=== PATIENT | female | born 1980 | race Caucasian/White ===

== ENCOUNTER 2017-10-26 11:06 | Inpatient (IN) | payer BC ==
[~2017-10-26] VITALS: Ht 172.7 cm; Wt 90.5 kg
[~2017-10-26 11:06] MED LIST: INSU100V13 SQ; LANTUS SQ; PARO-62 PO
[2017-10-26] MEDS ORDERED: INSU100C4 SQ (13:51)
[2017-10-26 15:41] VITALS: BP 110/77
[2017-10-26] MEDS ORDERED: glucagon, human recombinant 1mg kit SUBCUT PRN (15:50)
[2017-10-26] MEDS ORDERED: MESSAGE TO PHARMACY PO ONE (15:50)
[2017-10-26] MEDS ORDERED: dextrose 50%-water 50ml dispensing syringe IV PRN ×2 (15:50)
[2017-10-26] MEDS ORDERED: dextrose ORAL solution 15 GM/59 ML bottle PO PRN ×2 (15:50)
[2017-10-26 16:06] LABS: HEMOGLOBIN A1C 8.2 % (4.5-6.2)
[2017-10-26 16:09] LABS: CHOL/HDL RATIO 4.4 (0.00-4.99); CHOLESTEROL 174 MG/DL (0-200); HDL CHOLESTEROL 40 MG/DL (35-60); LDL CHOLESTEROL 111 MG/DL (50-100); TRIGLYCERIDES 120 MG/DL (20-135)
[2017-10-26] MEDS: insulin Lispro (HumaLOG) vial - multi-dose SQ SCH (18:28)
[2017-10-26 19:00] VITALS: BP 119/80
[2017-10-26] MEDS: insulin glargine (Lantus) pen - multi-dose SQ SCH (21:31)
[2017-10-27 07:49] VITALS: BP 104/74
[2017-10-27] MEDS ORDERED: PARoxetine 20mg tablet PO SCH ×2 (08:00)
[2017-10-27] MEDS: insulin Lispro (HumaLOG) vial - multi-dose SQ SCH ×3 (08:30→18:03)
[2017-10-27 20:00] VITALS: BP 128/75
[2017-10-27] MEDS: insulin glargine (Lantus) pen - multi-dose SQ SCH (20:45)
[2017-10-28] MEDS ORDERED: traZODone 50mg tablet PO PRN (07:30)
[2017-10-28 08:00] VITALS: BP 103/67
[2017-10-28] MEDS ORDERED: venlafaxine XR 37.5mg cap (Q24H) PO SCH (08:00)
[2017-10-28] MEDS: insulin Lispro (HumaLOG) vial - multi-dose SQ SCH ×3 (08:21→18:01)
[2017-10-28 20:00] VITALS: BP 124/88
[2017-10-28] MEDS: insulin glargine (Lantus) pen - multi-dose SQ SCH (21:00)
[2017-10-29 08:00] VITALS: BP 116/71
[2017-10-29] MEDS: insulin Lispro (HumaLOG) vial - multi-dose SQ SCH ×3 (08:18→18:33)
[2017-10-29] MEDS: venlafaxine XR 37.5mg cap (Q24H) PO SCH (08:21)
[2017-10-29 20:33] VITALS: BP 120/71
[2017-10-29] MEDS: insulin glargine (Lantus) pen - multi-dose SQ SCH (20:52)
[2017-10-30 08:00] VITALS: BP 114/69
[2017-10-30] MEDS: venlafaxine XR 37.5mg cap (Q24H) PO SCH (08:07)
[2017-10-30] MEDS: insulin Lispro (HumaLOG) vial - multi-dose SQ SCH ×3 (08:29→18:06)
[2017-10-30 19:27] VITALS: BP 130/76
[2017-10-30] MEDS: insulin glargine (Lantus) pen - multi-dose SQ SCH (21:10)
[2017-10-31] MEDS ORDERED: TRAZ-143 PO (07:39)
[2017-10-31] MEDS ORDERED: VENL75TA90 PO (07:39)
[2017-10-31] MEDS: venlafaxine XR 37.5mg cap (Q24H) PO SCH (07:56)
[2017-10-31 08:00] VITALS: BP 114/76
[2017-10-31] MEDS: insulin Lispro (HumaLOG) vial - multi-dose SQ SCH (08:31)
== END 2017-10-31 10:30 | disposition home or self-care (01) | DRG 918 ==
LOC: ADULT MH 11:06
PROVIDERS: ADMIT Psychiatry & Neurology Psychiatry; ATTEND Psychiatry & Neurology Psychiatry
DX: T38.3X2A Poisoning by insulin and oral hypoglycemic [antidiabetic] drugs, intentional self-harm, initial encounter (principal); E87.1 Hypo-osmolality and hyponatremia; E87.6 Hypokalemia; F32.9 Major depressive disorder, single episode, unspecified; F90.9 Attention-deficit hyperactivity disorder, unspecified type; F41.0 Panic disorder [episodic paroxysmal anxiety]; E10.649 Type 1 diabetes mellitus with hypoglycemia without coma; D72.828 Other elevated white blood cell count; E10.40 Type 1 diabetes mellitus with diabetic neuropathy, unspecified; Z81.8 Family history of other mental and behavioral disorders; Z91.410 Personal history of adult physical and sexual abuse; Z79.4 Long term (current) use of insulin; Z88.1 Allergy status to other antibiotic agents; Z88.8 Allergy status to other drugs, medicaments and biological substances; Y92.89 Other specified places as the place of occurrence of the external cause
CPT/HCPCS: 36415; 80061; 82948; 83036; 87070; 99285; J1815